=== PATIENT | female | born 1990 | race Asian ===

== ENCOUNTER 2017-12-22 18:08 | Emergency (ER) | payer BC, SELFPAY ==
[2017-12-22 18:08] VITALS: BP 102/76; PULSE 89; RESP 17; TEMP 36.8; O2SAT 100; BMI 24.1
--- NOTE | 2017-12-22 19:30 | RAD_ITS ---
STUDY: X-RAY CHEST REASON FOR EXAM: Female, 27 years old. chest pain TECHNIQUE: PA and lateral views of the chest. COMPARISON: None. FINDINGS: The lungs are clear and expanded. There is no demonstrated pleural abnormality. Normal size heart. Normal mediastinum and deysi. Normal visualized pulmonary arteries. Normal visualized aortic arch and descending thoracic aorta. Normal visualized thoracic spine. Normal visualized ribs, clavicles, and shoulders. There is no demonstrated abnormality of the visualized soft tissue structures of the upper abdomen. RAD/Chest PA and Lateral IMPRESSION: Normal x-ray examination of the chest. Electronically Signed: Mary Velez MD at 20:06 EST Tel , Service support ,
--- NOTE | 2017-12-22 19:30 | EKG12_ITS ---
Test Reason : CP Blood Pressure : / mmHG Vent. Rate : 087 BPM Atrial Rate : 087 BPM P-R Int : 128 ms QRS Dur : 078 ms QT Int : 376 ms P-R-T Axes : 073 054 -20 degrees QTc Int : 452 ms Normal sinus rhythm with sinus arrhythmia Nonspecific T wave abnormality Abnormal ECG Confirmed by PÉREZ DICKEY ([id number]), society editor KYLE MATUTE ([id number] on 12/26/2017 9:33:33 AM Referred By: Confirmed By:PÉREZ DICKEY
--- NOTE | 2017-12-22 19:53 | NURSING ---
NO OD EKG'S IN MUSE
--- NOTE | 2017-12-22 20:22 | ED.VISSUMM ---
- ER Visit Summary Date of Service: 12/22/17 Chief Complaint: Left sided chest pain for approximately 1 week History of Present Illness: The patient is a 27 F who presents with 1 week of left-sided chest pain. The pain is worse with activity, movement and breathing. She had onset of URI 2-3 weeks ago with runny nose congestion and slight cough. She has no history of VTE or any risk factors. No complaint of leg pain, swelling or discoloration. She is on no medication. Physical Examination: Vital signs are normal and she is PERC negative. HEENT exam is unremarkable. Heart is regular without murmur, gallop or rub. S1 and S2 are normal. Lungs are clear to auscultation with good movement of air bilaterally. There is reproducible pain or fifth left intercostal space. This reproduces her pain exactly. Test Results: EKG that was obtained per nurse protocol reveals a sinus rhythm with respiratory variation and is normal. Emergency Department Course and Treatment: Anti-inflammatories since there is no contraindication Treatment Plan: Naprosyn 500 mg twice daily ?5 days Disposition: Discharged to home with Impression: Left sided chest pain secondary to costochondritis This note was generated with [employer] dictation software. It may contain incorrect words, spelling, and punctuation that were not noted in review of the chart prior to signing ED Disposition - Plan for ED Patient: Disposition: Home or Assisted Living Chief Complaint: Chest Pain Instructions: ED Chest Pain Costochondritis Prescriptions: Naproxen [Naprosyn] 500 mg PO BID #10 tab Referrals: Erika Servin MD [Primary Care Provider] - 1 Week if not improving
[2017-12-22 20:26] VITALS: BP 127/84; PULSE 81; RESP 14; O2SAT 100
[2017-12-22 20:33] VITALS: PULSE 79; RESP 16
[2017-12-22] MEDS: Naproxen 250 MG Tablet 500 MG PO (20:33)
--- NOTE | 2017-12-22 20:34 | ED.RN ---
THIS NURSE REVIEWED D/C INSTRUCTIONS WITH PT. PT VERBALIZED UNDERSTANDING OF INSTRUCTIONS. PT DENIES FURTHER NEEDS OR QUESTIONS AT THIS TIME. PT AMBULATES FROM DEPARTMENT ON OWN WITHOUT ASSISTANCE FROM STAFF
== END 2017-12-22 20:34 | disposition home or self-care (01) ==
PROVIDERS: Emergency Provider Emergency Medicine; Family Provider Internal Medicine; PCP Internal Medicine
DX: M94.0 Chondrocostal junction syndrome [Tietze] (principal)
CPT/HCPCS: 71046; 93005; 99283

== ENCOUNTER → 2019-11-29 16:14 | Outpatient (CLI) | payer BC, SELFPAY ==
[2019-12-03 09:35] LABS: HPV Reflexed? NOT INDICATED
== END ==
PROVIDERS: Family Provider Internal Medicine; PCP Internal Medicine; Visit Provider Obstetrics & Gynecology
DX: Z12.4 Encounter for screening for malignant neoplasm of cervix (principal)
CPT/HCPCS: 88175; G0145

== ENCOUNTER → 2020-08-19 16:29 | Outpatient (CLI) | payer BC, SELFPAY ==
[2020-08-19 17:55] LABS: Absolute Lymphocyte Count 2.33 X10^3/uL (0.83-4.51); Absolute Neutrophil Count 6.3 X10^3/uL (2.0-7.7); Basophil# 0.03 X10^3/uL; Basophil% 0.3 % (0-1); Eosinophil# 0.04 X10^3/uL; Eosinophils% 0.4 % (0-5); Hematocrit 39.3 % (37-47); Hemoglobin 13.1 g/dL (12.0-15.0); Lymphocyte # 2.33 X10^3/ul (4.0); Lymphocyte % 24.9 % (19-41); Mean Corp Hgb Conc 33.3 g/dL (32-36); Mean Corpuscular Hgb 30.2 pg (27.0-32.0); Mean Corpuscular Volume 90.6 fL (81-99); Mean Platelet Vol. 11.8 fl (6.2-12.0); Monocyte# 0.57 X10^3/uL; Monocyte% 6.1 % (0-10); NRBC Flagged by Analyzer 0 % (0-5); Neutrophil # 6.34 X10^3/uL (2.7-7.7); Platelet Count 259 K/mm3 (150-450); RBC Distribution Width CV 12.2 % (11.6-14.6); RBC Distribution Width SD 40.2 fl (35.1-43.9); Red Blood Count 4.34 M/mm3 (4.2-5.4); White Blood Count 9.3 K/mm3 (4.4-11.0)
[2020-08-19 17:56] LABS: Color, Urine Yellow (Yellow); Glucose, Dipstick Normal (Normal); Leukocyte Esterase-Dipstick 500 /ul (Negative); Nitrite-Dipstick Negative (Negative); Occult Blood-Urine 10 /ul (Negative); Protein-Dipstick 30 mg/dl (Negative); Specific Gravity, Urine 1.025 (1.002-1.030); Urine Bilirubin Dipstick Negative (Negative); Urine Clarity Cloudy (Clear); Urine Urobilinogen 1 mg/dl (Normal)
[2020-08-19 18:09] LABS: Ketone-Dipstick 150 mg/dl (Negative)
[2020-08-19 18:19] LABS: Thyroid Stim Hormone (TSH) 1.47 uIU/mL (0.358-3.74)
[2020-08-19 18:24] LABS: Amphetamine Urine VISTA NEGATIVE (<1000 ng/mL); Barbiturate Urine VISTA NEGATIVE (< 200 ng/mL); Benzodiazepine Urine VISTA NEGATIVE (< 200 ng/mL); Cocaine Urine VISTA NEGATIVE (< 300 ng/mL); Ecstacy Urine VISTA NEGATIVE (< 500 ng/mL); Methadone Urine VISTA NEGATIVE (< 300 ng/mL); PCP Urine VISTA NEGATIVE (< 25 ng/mL); THC Urine VISTA NEGATIVE (< 50 ng/mL); Vista UDS pH Range 5
[2020-08-20 05:23] LABS: Prenatal RPR NONREACTIVE (NONREACTIVE)
[2020-08-20 09:36] LABS: HIV - WCH Non-Reactive (Nonreactive); Hepatitis B Surface Antigen Non-Reactive (Nonreactive); Hepatitis C Antibody Non-Reactive (Nonreactive); Rubella IgG 63.7 IU/mL
[2020-08-22 03:06] LABS: Chlamydia By Nucleic Acid AMP Negative (Negative)
[2020-08-22 08:11] LABS: Gonococcus By Nucleic Acid AMP Negative (Negative)
== END ==
PROVIDERS: PCP Internal Medicine; Visit Provider Obstetrics & Gynecology
DX: Z34.81 Encounter for supervision of other normal pregnancy, first trimester (principal); Z11.3 Encounter for screening for infections with a predominantly sexual mode of transmission
CPT/HCPCS: 36415; 80307; 81002; 84443; 85025; 86703; 86762; 86803; 87340; 87491; 87591

== ENCOUNTER → 2020-09-18 | Outpatient (CLI) | payer BC, SELFPAY | END | disposition home or self-care (01) | LOC: LABSPEC 15:57 | PROVIDERS: PCP Internal Medicine; Visit Provider Obstetrics & Gynecology | DX: O23.42 Unspecified infection of urinary tract in pregnancy, second trimester (principal); Z3A.00 Weeks of gestation of pregnancy not specified | CPT/HCPCS: 87086; 87088 ==

== ENCOUNTER → 2020-10-16 16:03 | Outpatient (CLI) | payer BC, SELFPAY ==
[2020-10-16 16:39] LABS: Hematocrit 37.4 % (37-47); Hemoglobin 12.4 g/dL (12.0-15.0); Mean Corp Hgb Conc 33.2 g/dL (32-36); Mean Corpuscular Hgb 30.7 pg (27.0-32.0); Mean Corpuscular Volume 92.6 fL (81-99); Mean Platelet Vol. 11.3 fl (6.2-12.0); Platelet Count 246 K/mm3 (150-450); RBC Distribution Width CV 12.9 % (11.6-14.6); RBC Distribution Width SD 43.3 fl (35.1-43.9); Red Blood Count 4.04 M/mm3 (4.2-5.4); White Blood Count 8.6 K/mm3 (4.4-11.0)
== END ==
PROVIDERS: PCP Internal Medicine; Visit Provider Obstetrics & Gynecology
DX: R53.83 Other fatigue (principal)
CPT/HCPCS: 36415; 85027

== ENCOUNTER → 2021-01-08 15:13 | Outpatient (CLI) | payer BC, SELFPAY ==
[2021-01-08 16:41] LABS: Hematocrit 36.2 % (37-47); Hemoglobin 11.7 g/dL (12.0-15.0); Mean Corp Hgb Conc 32.3 g/dL (32-36); Mean Corpuscular Hgb 29.4 pg (27.0-32.0); Mean Platelet Vol. 11.3 fl (6.2-12.0); Platelet Count 218 K/mm3 (150-450); RBC Distribution Width CV 15.2 % (11.6-14.6); RBC Distribution Width SD 49.4 fl (35.1-43.9); Red Blood Count 3.98 M/mm3 (4.2-5.4); White Blood Count 9.1 K/mm3 (4.4-11.0)
[2021-01-08 16:51] LABS: Glucose Challenge Gest 1H 50g 106 mg/dL (70-140)
== END ==
PROVIDERS: PCP Internal Medicine; Visit Provider Obstetrics & Gynecology
DX: Z34.83 Encounter for supervision of other normal pregnancy, third trimester (principal)
CPT/HCPCS: 36415; 82950; 85027

== ENCOUNTER → 2021-02-24 09:58 | Outpatient (CLI) | payer BC, SELFPAY | PROVIDERS: PCP Internal Medicine; Visit Provider Student in an Organized Health Care Education/Training Program | DX: Z36.85 Encounter for antenatal screening for Streptococcus B (principal) | CPT/HCPCS: 87081 ==

== ENCOUNTER 2021-03-20 23:50 | Inpatient (IN) | payer BC, SELFPAY ==
[2021-03-20 23:25] VITALS: BMI 31.0
[2021-03-20 23:37] VITALS: BP 126/82
[2021-03-20 23:38] VITALS: PULSE 95; O2SAT 98
[2021-03-20 23:39] VITALS: TEMP 37.2
[2021-03-20] MEDS: Lactated Ringers 1,000 ML 50 ML IV (23:55)
[2021-03-20] MEDS: Lactated Ringers 500 ML 999 ML IV (23:55)
[2021-03-21] VITALS (47 sets, daily range): BP systolic 93–127; BP diastolic 49–74; PULSE 74–251; RESP 14–16; TEMP 36.2–37.3; O2SAT 82–100
[2021-03-21 00:17] LABS: Absolute Lymphocyte Count 2.27 X10^3/uL (0.83-4.51); Absolute Neutrophil Count 7.2 X10^3/uL (2.0-7.7); Basophil# 0.05 X10^3/uL; Basophil% 0.5 % (0-1); Hematocrit 43.7 % (37-47); Hemoglobin 14.3 g/dL (12.0-15.0); Lymphocyte # 2.27 X10^3/ul (0.83-4.51); Lymphocyte % 21.7 % (19-41); Mean Corp Hgb Conc 32.7 g/dL (32-36); Mean Corpuscular Hgb 29.9 pg (27.0-32.0); Mean Corpuscular Volume 91.4 fL (81-99); Mean Platelet Vol. 11.2 fl (6.2-12.0); Monocyte# 0.74 X10^3/uL; Monocyte% 7.1 % (0-10); NRBC Flagged by Analyzer 0 % (0-5); Neutrophil # 7.21 X10^3/uL (2.7-7.7); Neutrophil % 68.7 % (47-70); Platelet Count 217 K/mm3 (150-450); RBC Distribution Width CV 14.3 % (11.6-14.6); RBC Distribution Width SD 48.4 fl (35.1-43.9); Red Blood Count 4.78 M/mm3 (4.2-5.4); White Blood Count 10.5 K/mm3 (4.4-11.0)
[2021-03-21] MEDS: Lactated Ringers 500 ML 999 ML IV ×2 (00:26→01:27)
--- NOTE | 2021-03-21 01:08 | HP.PCM_ITS ---
History and Physical Date of Admission: 03/20/21 HPI: 30 yo at 39/6, ABEBA 03/22/21 by LMP c/w early US, admitted in active labor. Reports contractions. Denies LOF, VB. +FM. This is complicated by: suspected tuberous sclerosus Obstetrical History G1: FT G2: Current Past Medical History denies Medications PNV Past Surgical History denies Social History Tobacco use: denies Alcohol use: denies Illicit drug use: denies Labs Blood type: _ Rubella: immune Hep B/C: neg/neg HIV: neg RPR: nonreactive GBS: positive based on bacteruria in early Allergies NKDA Review of Systems General: alert and oriented HEENT: _denies change of vision Heart/lungs: denies CP, SOB GI: _denies nausea, vomiting, dysuria, diarrhea MSK: denies calf pain, tenderness Physical Exam Vital Signs Temp Pulse BP Pulse Ox 03/21/21 01:11 100 87 03/21/21 01:09 119 H 96 03/21/21 01:06 107 H 112/57 L 03/21/21 01:04 110 H 91 03/21/21 01:02 96 119/49 L 03/21/21 00:59 98 116/56 L 98 03/21/21 00:55 99.0 F 03/21/21 00:54 100 98 03/21/21 00:49 104 H 100 03/21/21 00:40 93 98 03/21/21 00:36 96 127/74 H 03/21/21 00:31 88 113/64 03/21/21 00:24 251 H 82 03/20/21 23:39 99.0 F 03/20/21 23:38 95 98 03/20/21 23:37 126/82 H General: a&o x3, NAD HEENT: normocephalic, atraumatic Cardio: no JVD Resp: no increased work in breathing Abdomen: soft, gravid, nontender Extremities: _minimal-moderate edema CE: 7-8 cm on admission per RN FHT: 135/mod yancy/+accel/no decel [place]: q2-3 Labs Abnormal Lab Results 03/20/21 23:55 WBC 10.5 RBC 4.78 Hgb 14.3 Hct 43.7 MCV 91.4 MCH 29.9 MCHC 32.7 RDW Std Deviation 48.4 H RDW Coeff of Yancy 14.3 Plt Count 217 MPV 11.2 Immature Gran % (Auto) 1.000 H Neut % (Auto) 68.7 Lymph % (Auto) 21.7 [place] % (Auto) 7.1 Eos % (Auto) 1.0 Baso % (Auto) 0.5 Absolute Neuts (auto) 7.2 Absolute Lymphs (auto) 2.27 Nucleated RBC % 0 Assessment & Plan 30 yo at 39/6, ABEBA 03/22/21 by LMP c/w early US, , admitted in active labor. This is complicated by: suspected tuberous sclerosus Admit to L&D - Routine labor orders - GBS pos, PCN - Anesthesia to see - tuberous sclerosus. First noted thickened ventricle on ultrasound. Pt was referred to [facility] who noted the same. She was then sent to pediatric cardiology for evaluation. 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 Patient declined MRI. Suspicious for tuberous sclerosus. Planned follow up with pediatric cardiology within one week of delivery. Discussed delivery at [facility] with Dr. Gil who also discussed with NICU physicians at [facility]. Per discussion and his review of notes, should not see effects at delivery or shortly thereafter. Will need follow up as above. Patient and elected to deliver at [facility] as compared to in [place].
[2021-03-21] MEDS: fentaNYL-bupivacaine (epidural) 100 ML BAG EPIDURAL (01:12)
[2021-03-21] MEDS: Lactated Ringers 1,000 ML 200 ML IV (02:24)
[2021-03-21] MEDS: Oxytocin 30 units/NS 500 ml 30 UNITS/500 ML IV.SOLN 334 UNITS IV (03:32)
--- NOTE | 2021-03-21 03:50 | PCM.OPRPT ---
Vaginal Delivery Maternal Presentation: Active Labor, Spontaneous Rupture of Membranes Amniotic Membrane Rupture Type: Spontaneous Amniotic Fluid Description: Clear Final ABEBA: 03/22/21 Final ABEBA Source: LMP Gestational age: 39 Weeks and 6 Days Date of Procedure: 03/21/21 Pre-Operative Diagnosis: Term braxton intrauterine . Nonreassuring heart tones. Post-Operative Diagnosis: Term braxton intrauterine . Nonreassuring heart tones. Surgery/ Procedure Performed: Vacuum Assisted Vaginal Delivery Type of Anesthesia: Epidural Description of Procedure: Indications/risk/benefits: Operative delivery discussed with indication being nonreassuring heart tones. Risks, benefits, alternatives were discussed with the patient and her . Risks include but are not limited to: Risk of maternal perineal laceration, scalp laceration, cephalohematoma, subgaleal or intracranial hemorrhage, facial nerve palsy. Additionally risk of failure of operative delivery discussed, with subsequent plan then being section. Patient offered section at this time as well. Patient verbally consented and desired attempt with operative delivery. Procedure: head position left occiput anterior, +2 station. Bladder had been recently drained. Patient had adequate anesthesia with epidural. Patient had adequate room in pelvis on pelvimetry. Forceps were opened and phantom placement on perineum with articulation completed. Patient shown device. Right hand placed in the vagina as a guide and left forcep placed, left hand then placed in the vagina and right forcep placed. Forceps did not articulate. Therefore they were removed. Forceps were removed replaced without articulation again. At that time as forceps had been attempted to be applied without shank articulation, no pulls had been completed, and maternal pelvis was deemed adequate for vaginal delivery, decision to utilize vacuum was made to shorten second stage of labor. This was discussed with the patient and her at the time. Explained that attempt at forcep application had been completed however proper placement was not achieved and vacuum could be used at that time to assist maternal effort. Patient and agreed. Vacuum applied with the vacuum cup placed 2 cm anterior to the posterior fontanelle and centered over the sagittal suture, no maternal tissue was incorporated in the vacuum cup. With maternal effort vacuum was applied and descent of head was made with pushing effort. There were 2 pop offs. Patient continued to push with good effort and tolerance at this time. Head was delivered followed by body. Nuchal cord x1 was loose and reduced. Baby to maternal chest. Terminal meconium noted. Cord clamped and cut. Baby to warmer for evaluation by city council member. Spontaneous delivery of placenta. Bladder was drained. Second-degree laceration repaired in the usual fashion, hemostatic. EBL 300 cc. Apgars 7 and 9. Baby assessed with no scalp lacerations noted, moving all four extremities spontaneously. Infant A gender: Male (1 minute): 7 (5 minute): 8
--- NOTE | 2021-03-21 04:15 | DCINST_ITS ---
Discharge Diet: No Restrictions Discharge Activity: Return to Normal Activity, May Drive, May Shower May resume sexual activity in: 4-6 weeks Weight Bearing Status: Weight bearing as tolerated Call your doctor if your incision/area has: Continuous Slow Oozing Call your doctor if you observe: Fever of 101 or Higher, Coldness, Increased Pain, Using more than one pad per hour, Shortness of breath, Dizziness, Uncontrolled pain Cleanse incision/area with: Soap & Water Additional Instructions: If you experience any of the following, contact your healthcare provider. * Bleeding that soaks a pad every hour for 2 hours * Fever 100.4 or higher * Unrelieved incision or abdominal pain * Swelling, redness, discharge or bleeding from your incision or episiotomy site * Your incision begins to separate * Problems urinating (including inability to urinate or burning while urinating). * Visual changes * Severe headache * Flu-like symptoms * Pain or redness in one of both of your breasts * Pain, warmth, tenderness or swelling in your legs, especially the calf area * Frequent nausea and vomiting * Symptoms of depression or anxiety If you experience any of the following, call 911 or go to the nearest Emergency Room. * Chest pain * Problems breathing * Seizure activity * Partial or complete paralysis of a body part, slurred speech, weakness or drooping of the face, or a sudden inability to walk or hold your balance Allergies/Adverse Reactions: Allergies No Known Allergies Allergy (Verified 03/21/21 01:43) Medications to take at Discharge Pnv No.103/Folic/Om3s/Fish Oil [ Gummies] 1 each PO DAILY 03/20/21 When: Ruby Lieberman. 3 week and 6 week When: [facility] within 1 week of delivery of baby Primary Care Physician: Erika Servin MD [Primary Care Provider] - Test Results: Test results from this visit will be discussed in further detail at your follow- up appointment, if applicable.
[2021-03-21] MEDS: 0.9% Saline Lock 10 ML Syringe IV (06:06)
[2021-03-22 00:38] VITALS: BP 100/57; PULSE 87; RESP 16; TEMP 36.9
[2021-03-22 04:13] VITALS: BP 91/41; PULSE 83; RESP 16; TEMP 36.7
[2021-03-22 09:00] VITALS: BP 97/57; PULSE 77; RESP 16; TEMP 36.1
--- NOTE | 2021-03-22 10:33 | PCM.PN.OB ---
Subjective: PPD#1. Feeling well. Having some soreness. . Lochia minimal. - Physical Exam Vitals/I&O's: Vital Signs Temp Pulse Resp BP Pulse Ox 97.0 F L 77 16 97/57 L 97 03/22/21 09:00 03/22/21 09:00 03/22/21 09:00 03/22/21 09:00 03/21/21 16:00 Oxygen Delivery Method Room Air Weight: 84.64 kg Body Mass Index (BMI) 31.0 Intake and Output for Last 24 Hours 03/20/21 03/21/21 03/22/21 23:59 23:59 23:59 Intake Total 0.83 / 0.83 2505.00 / 2505.00 Output Total 1400 / 1400 Balance 0.83 / 0.83 1105.00 / 1105.00 General: Alert, Oriented x3, No apparent distress HEENT: Atraumatic, Normocephalic Neck: Supple Lungs: Normal air movement Cardiovascular: Regular rate Abdomen: Soft - uterus 2 cm below umbilicus Extremities: No edema Neurological: Cranial nerves II-XII grossly intact Psych/Mental Status: Normal Affect, Appropriate Microbiology Past 72 Hours 03/20/21 00:05 Mucosa - Nose SARS-CoV-2 Antigen (Rapid) - Final Current Medications Acetaminophen (Acetaminophen 500 Mg Tablet) 1,000 mg PO Q8H PRN PRN PRN Reason: Pain Score 1-10 Bisacodyl (Bisacodyl 10 Mg Suppository) 10 mg RC UD PRN PRN Reason: If no BM Dibucaine (Dibucaine 30 Gm Tube) 1 applic TOPICAL TID PRN PRN; Protocol PRN Reason: Discomfort Hydrocortisone (Hydrocortisone 2.5% Crm) 1 applic TOPICAL TID PRN PRN; Protocol PRN Reason: Discomfort Ibuprofen (Ibuprofen 600 Mg Tablet) 600 mg PO Q6H PRN PRN PRN Reason: Pain Score 1-3 Ondansetron HCl (Ondansetron 4 Mg/2 Ml Vial) 4 mg IV Q4H PRN PRN PRN Reason: Nausea Senna/Docusate Sodium (Senna/Docusate Sodium 1 Tablet) 1 - 2 tablet PO DAILY PRN PRN PRN Reason: Constipation Simethicone (Simethicone 80 Mg Tablet) 80 mg PO PCHS PRN PRN Reason: Indigestion/Stomach pain Sodium Chloride (0.9% Saline Lock 10 Ml Syringe) 5 - 15 ml IV UD PRN PRN Reason: SALINE FLUSH Last Admin: 03/21/21 06:06 Dose: 10 ml Documented by: Zolpidem Tartrate (Zolpidem Tartrate 5 Mg Tablet) 5 mg PO QHS PRN PRN PRN Reason: Insomnia Medical Necessity - Tobacco Use Smoking Status: Never smoker Assessment/Plan PPD#1 s/p VAVD. Baby with suspected tuberous sclerosus - will need pediatric cardiology follow up within 1 week of delivery, parents have phone number to call for appointment. Okay to discharge home when baby is okayed.
--- NOTE | 2021-03-22 11:42 | NURSING ---
Pt questioning fundus placement and states I have questions for Dr. Lieberman, can you please call her. Fundus firm and midline u2. Message left with office
[2021-03-22 14:00] VITALS: BP 93/55; PULSE 64; RESP 16; TEMP 36.6
== END 2021-03-22 18:55 | disposition home or self-care (01) | DRG 807 ==
LOC: WPOUT 23:51 → WP 23:51
PROVIDERS: Admitting Provider Student in an Organized Health Care Education/Training Program; PCP Internal Medicine; Visit Provider Student in an Organized Health Care Education/Training Program
DX: O76 Abnormality in fetal heart rate and rhythm complicating labor and delivery (principal); Z37.0 Single live birth; O42.92 Full-term premature rupture of membranes, unspecified as to length of time between rupture and onset of labor; O36.8930 Maternal care for other specified fetal problems, third trimester, not applicable or unspecified; O69.81X0 Labor and delivery complicated by cord around neck, without compression, not applicable or unspecified; O70.1 Second degree perineal laceration during delivery; O77.0 Labor and delivery complicated by meconium in amniotic fluid; Z3A.39 39 weeks gestation of pregnancy
CPT/HCPCS: 59050; 85025; 86850; 86900; 86901; 87426; 99218; J7120; A4216; G0378